=== PATIENT | female | born 1970 | race African-American/Black ===

== ENCOUNTER 2018-02-19 18:33 | Emergency (ER) | payer BC, SELFPAY ==
--- NOTE | 2018-02-19 20:14 | RAD ---
FRONTAL RADIOGRAPH CHEST 02/19/18 COMPARISON: 04/25/16 HISTORY: Chest pain and left sided numbness. FINDINGS: The lungs are clear. Heart and mediastinal contours are unremarkable. IMPRESSION: No acute findings. POS: [facility]
[2018-02-19 20:38] LABS: ALT (SGPT) 18 U/L (8-55); AST (SGOT) 17 U/L (5-34); Albumin 4.1 g/dL (3.5-5.0); Alkaline Phosphatase 111 U/L (40-150); Anion Gap 13 mmol/L (10-20); BUN (Urea Nitrogen) 13 mg/dL (7.0-18.7); Bilirubin, Total 0.2 mg/dL (0.2-1.2); Calc. Creatinine Clearance 0 mL/min (70-130); Calcium 9.1 mg/dL (7.8-10.44); Carbon Dioxide 24 mmol/L (22-29); Chloride 102 mmol/L (98-107); Estimated GFR-MDRD Greater than 90; Globulin 3.6 g/dL (2.4-3.5); Glucose 161 mg/dL (70-105); Potassium 3.7 mmol/L (3.5-5.1); Protein, Total 7.7 g/dL (6.0-8.3); Sodium 135 mmol/L (136-145)
[2018-02-19 20:43] LABS: CKMB 1.3 ng/mL (0-6.6); Troponin I Less than 0.010 ng/mL (< 0.028)
[2018-02-19 20:51] LABS: #Eosinphils 0.1 thou/uL (0.0-0.7); #Lymphocytes 2.2 thou/uL (1.20-3.40); #Monocytes 0.7 thou/uL (0.11-0.59); #Neutrophils 4.9 thou/uL (1.40-6.50); %Basophils 0.5 % (0.0-1.0); %Eosinophils 1.3 % (0.0-10.0); %Lymphocytes 27.5 % (21.0-51.0); %Monocytes 8.7 % (0.0-10.0); Hemoglobin 10.6 g/dL (12.0-16.0); Mean Corpuscular HGB CONC 32.1 g/dL (32.0-36.0); Mean Corpuscular Hemoglobin 24.7 pg (27.0-31.0); Mean Corpuscular Volume 76.8 fl (81.0-99.0); Mean Platelet Volume 7.8 fL (7.4-10.4); Platelet Count 366 thou/uL (130-400); White Blood Cell (WBC) Count 7.8 thou/uL (4.8-10.8)
[2018-02-20 00:18] LABS: Troponin I Less than 0.010 ng/mL (< 0.028)
== END 2018-02-20 01:43 | disposition home or self-care (01) ==
LOC: ERS 18:33
DX: R07.89 Other chest pain (principal); E11.9 Type 2 diabetes mellitus without complications; I10 Essential (primary) hypertension; Z79.84 Long term (current) use of oral hypoglycemic drugs; Z79.899 Other long term (current) drug therapy
CPT/HCPCS: 36415; 71045; 80053; 82553; 83880; 84484; 85025; 93005

== ENCOUNTER 2018-04-01 22:22 | Emergency (ER) | payer SELFPAY ==
[2018-04-01] MEDS ORDERED: Ketorolac Tromethamine 60 MG/2 ML VIAL ONE (23:09)
--- NOTE | 2018-04-01 23:21 | RAD ---
RIGHT KNEE: 04/01/18 Four views. INDICATIONS: Right knee pain and swelling. Mild degenerative changes of the right knee. There is spurring from the femoral condyles and patella. Medial and lateral joint spaces are maintained. There may be a small joint effusion. There is no chris dence of acute fracture. IMPRESSION: Mild degenerative changes of the right knee. Question small joint effusion. POS: [facility]
[2018-04-01] MEDS ORDERED: Ondansetron ODT 4 MG TAB ONE (23:23)
--- NOTE | 2018-04-02 | ULT ---
RIGHT LOWER EXTREMITY VENOUS DUPLEX EXAM: 04/01/18 HISTORY: Right lower extremity pain and edema. Deep veins of the right lower extremity evaluated with color doppler, spectral analysis and compressi on. These veins show normal compression, augmentation and blood flow. No evidence of DVT. IMPRESSION: No evidence of right lower extremity DVT. POS: [facility]
== END 2018-04-02 00:15 | disposition home or self-care (01) ==
LOC: ERS 22:22
DX: S83.91XA Sprain of unspecified site of right knee, initial encounter (principal); E11.9 Type 2 diabetes mellitus without complications; I10 Essential (primary) hypertension; Z79.899 Other long term (current) drug therapy; Z79.84 Long term (current) use of oral hypoglycemic drugs; X50.1XXA Overexertion from prolonged static or awkward postures, initial encounter
CPT/HCPCS: 96372; J1885; Q0162

== ENCOUNTER 2019-05-15 22:18 | Emergency (ER) | payer SELFPAY ==
[2019-05-15] MEDS ORDERED: Ketorolac Tromethamine 60 MG/2 ML VIAL ONE (22:31)
--- NOTE | 2019-05-15 22:55 | RAD ---
Right shoulder 3 views HISTORY: Right shoulder injury. FINDINGS: Acromioclavicular and glenohumeral alignment are maintained. No acute fracture or dislocati on. IMPRESSION: No acute osseous abnormalities are demonstrated.
== END 2019-05-15 23:20 | disposition home or self-care (01) ==
LOC: ERS 22:18
DX: S46.911A Strain of unspecified muscle, fascia and tendon at shoulder and upper arm level, right arm, initial encounter (principal); I10 Essential (primary) hypertension; E11.9 Type 2 diabetes mellitus without complications; Z79.899 Other long term (current) drug therapy; Z79.84 Long term (current) use of oral hypoglycemic drugs; X58.XXXA Exposure to other specified factors, initial encounter
CPT/HCPCS: 96372; J1885

== ENCOUNTER 2019-10-09 23:42 | Emergency (ER) | payer BC ==
[2019-10-10] MEDS ORDERED: Ketorolac Tromethamine 30 MG/ML VIAL ONE (00:18)
--- NOTE | 2019-10-10 08:13 | RAD ---
EXAM: XR Hip Rt 2-3 View PROVIDED CLINICAL HISTORY: Pain FINDINGS: Evaluation is limited by patient body habitus and portable technique. There is no evidence for fractu re or other acute osseous abnormality. Alignment appears anatomic. Joint spaces appear preserved. IMPRESSION: No evidence for an acute osseous abnormality. If there is persistent clinical concern, conservative m anagement and follow-up imaging advised.
== END 2019-10-10 00:41 | disposition home or self-care (01) ==
LOC: ERS 23:42
DX: M25.551 Pain in right hip (principal); E11.9 Type 2 diabetes mellitus without complications; I10 Essential (primary) hypertension; Z79.84 Long term (current) use of oral hypoglycemic drugs; Z79.899 Other long term (current) drug therapy
CPT/HCPCS: 96372; J1885

== ENCOUNTER 2020-02-29 09:30 | Outpatient (CLI) | payer BC ==
--- NOTE | 2020-02-29 10:03 | RAD ---
EXAM: XR Lumbar Spine Bending Min 4V PROVIDED CLINICAL HISTORY: Intervertebral disc displacement. History of prior back surgery. Patient states low back pain for a w hile. COMPARISON: None FINDINGS: There are 5 nonrib-bearing lumbar-type vertebral bodies. There is limited evaluation of the lower lum bar spine on the oblique images due to underpenetrated technique. The vertebral body heights are within normal limits. Grade 1 anterolisthesis of L4 on L5 is present measuring approximately 12 mm. L oss of intervertebral disc space height is present at the L4-5 and L5-S1 levels. Facet degenerative changes are seen in the lower lumbar spine. There is osseous bridging of the transverse processes of L5 with the iliac bones. Surgical clips overlie the right upper quadrant. Linear calcification overlies the right pelvis which may represent a vascular calcification, but this is asymmetric. IMPRESSION: 1. Degenerative changes lower lumbar spine with grade 1 anterolisthesis of L4 on L5. 2. Osseous bridging of the transverse processes of L5 with the iliac bones bilaterally. 3. Linear calcification incompletely evaluated right lower hemipelvis. This may potentially represent a vascular calcification, but this is asymmetric compared to the contralateral left hemipelvis, and no definitive vascular calcifications are seen in the region of the abdominal aorta. Exact etiolo gy is difficult to determine based on this study.
== END 2020-02-29 09:31 | disposition home or self-care (01) ==
LOC: BICRAD 09:30
PROVIDERS: ATTEND Internal Medicine Rheumatology
DX: M51.26 Other intervertebral disc displacement, lumbar region (principal); M47.816 Spondylosis without myelopathy or radiculopathy, lumbar region; M43.16 Spondylolisthesis, lumbar region; M89.9 Disorder of bone, unspecified
CPT/HCPCS: 72120

== ENCOUNTER 2020-03-24 13:05 | Emergency (ER) | payer BC ==
[~2020-03-24 13:05] MED LIST: Iopamidol-370 76% 500 ML 1 ML ONE
[2020-03-24 13:43] LABS: Hemoglobin 10.5 g/dL (12.0-16.0); Mean Corpuscular HGB CONC 31.4 g/dL (32.0-36.0); Mean Corpuscular Hemoglobin 24.8 pg (27.0-31.0); Mean Corpuscular Volume 79.1 fL (78.0-98.0); Mean Platelet Volume 7.8 fL (7.4-10.4); Platelet Count 430 thou/uL (130-400); RBC Distribution Width 14.6 % (11.5-14.5); Red Blood Cell (RBC) Count 4.23 mill/uL (4.20-5.40); White Blood Cell (WBC) Count 14.4 thou/uL (4.8-10.8)
[2020-03-24] MEDS ORDERED: Fentanyl 100 MCG/2 ML VIAL ONE ×2 (13:50→16:32)
[2020-03-24] MEDS ORDERED: Piperacillin/Tazobactam 4.5 GM VIAL ONE (13:50)
[2020-03-24 14:06] LABS: ALT (SGPT) 12 U/L (8-55); AST (SGOT) 10 U/L (5-34); Albumin 3.8 g/dL (3.5-5.0); Alkaline Phosphatase 90 U/L (40-110); Anion Gap 15 mmol/L (10-20); BUN (Urea Nitrogen) 13 mg/dL (7.0-18.7); Bilirubin, Total 0.3 mg/dL (0.2-1.2); Calc. Creatinine Clearance 0 mL/min (70-130); Calcium 9.6 mg/dL (7.8-10.44); Carbon Dioxide 24 mmol/L (22-29); Chloride 103 mmol/L (98-107); Estimated GFR-MDRD 90; Globulin 4.3 g/dL (2.4-3.5); Glucose 113 mg/dL (70-105); Potassium 3.9 mmol/L (3.5-5.1); Protein, Total 8.1 g/dL (6.0-8.3); Sodium 138 mmol/L (136-145)
[2020-03-24 14:09] LABS: BHCG - Serum Negative (NEGATIVE); Pregs Control Background? CLEAR/WHITE (CLR/WHITE); Pregs Control Bar Appear? YES (CONTROL BAR)
[2020-03-24 14:11] LABS: Band 25 % (5-11); Hypochromia SLIGHT = 6-15 cells (100X) (0-5/hpf); Lymphocytes 13 % (21-51); MDiff Complete? YES; Monocytes 6 % (0-10); Neutrophil 48 % (42-75); Platelet Morphology Comment Appears Increased; Polychromasia SLIGHT = 2-3 cells (100X) (0-2/hpf); Reactive Lymphocytes 8 % (0-10); Target Cells SLIGHT = 2-5 cells (100X) (0-1/hpf); Tear Drops SLIGHT = 2-5 cells (100X) (0-1/hpf)
--- NOTE | 2020-03-24 14:52 | CT ---
CT abdomen and pelvis with IV contrast HISTORY: Perianal abscess. FINDINGS: Mild atelectasis at the right posterior medial lung base. The lobular cystic mass at the pa ncreatic tail containing a small focus of dystrophic calcification is slightly smaller than on the 2016 CTA chest. It now measures 2.2 cm x 2.0 cm x 1.7 cm greatest diameters. Gallbladder surgically absent. No evidence of bowel obstruction or inflammation. Lobular prominence o f the uterus is present with the appearance of fibroid involvement. A smoothly marginated oval area of hyperdensity along the left side of the uterus may represent an enhancing fibroid. No free fluid e vident. Posterior to the anus and just to the right of midline, in the area of prominent subcutaneous strandi ng, an oval fluid collection is 5.6 cm length by 5.0 cm depth by 2.8 cm with. No extension into the pelvic cavity is apparent. IMPRESSION : Right posterior perianal abscess. No extension into the pelvic cavity. Moderate fibroid involvement of the uterus. Slight interval decrease in size of complex pancreatic tail cyst.
[2020-03-24] MEDS ORDERED: Bupivacaine 0.25% 10 ML VIAL ONE (15:40)
[2020-03-24] MEDS ORDERED: Lidocaine 1% w/Epinephrine 1:100K 20 ML VIAL ONE (15:40)
--- NOTE | 2020-03-24 18:43 | OP ---
DATE OF PROCEDURE: 03/24/2020 PREOPERATIVE DIAGNOSIS: Perirectal abscess. POSTOPERATIVE DIAGNOSIS: Perirectal abscess. PROCEDURES PERFORMED: Incision and drainage at bedside for perirectal abscess in the emergency room. ANESTHESIA: 1% Xylocaine with epinephrine 30 mL, mixed with 0.5% Marcaine 30 mL. DESCRIPTION OF PROCEDURE: With the patient at bedside in the emergency room, right perianal area prepared with alcohol. Local anesthetic was infiltrated in the skin and subcutaneous tissue. Incision and drainage of large perirectal abscess with copious purulent material drained. Ellipse of skin excised to facilitate drainage and gauze packing applied. The patient was instructed that begin in the morning she should soak in warm soapy baths, remove the packing, wash it daily with soap and water in the bath or shower. If she has a bowel movement tonight, she can wash it sooner. If the dressing falls out tonight, she can just place a pad and wash it with soap and water. She has clindamycin, she will complete at home. She will follow up in my office in 2 weeks. Job ID: [id number]
--- NOTE | 2020-03-24 22:33 | HP ---
Kingsley Magallanes is a 49-year-old morbidly obese black female, for a week has been having right perianal pain. She is seen in the ER clindamycin. She is seen by Dr. June and she has an appointment to see Dr. Vargas next week. She presents to the emergency room because of worsening pain. She is diabetic on metformin. Evaluation reveals that the bedside right perianal area is indurated, fluctuance, very tender. ASSESSMENT AND PLAN: Perirectal abscess. We would recommend bedside drainage. She agrees. Job ID: [id number]
== END 2020-03-24 16:55 | disposition home or self-care (01) ==
LOC: ERS 13:05
DX: K61.0 Anal abscess (principal); E86.0 Dehydration; I10 Essential (primary) hypertension; R73.03 Prediabetes; Z79.84 Long term (current) use of oral hypoglycemic drugs; Z79.899 Other long term (current) drug therapy
CPT/HCPCS: 46050; 74177; 80053; 83605; 84703; 85025; 87040; 93005; 94760; 96361; 96365; 96374; 96375; J2543; J3010; Q9967; S0020

== ENCOUNTER 2020-05-09 09:23 | Outpatient (CLI) | payer BC ==
[2020-05-09 10:42] LABS: Estimated GFR-MDRD - POC Greater than 90
--- NOTE | 2020-05-09 12:43 | MRI ---
MRI LUMBAR SPINE WITH AND WITHOUT CONTRAST: Date: 05/09/2020 INDICATION: Low back pain, right hip pain. History of remote lumbar surgery in 1989. No comparison. Images are suboptimal due to body habitus. All sequences show grainy imaging and loss of detail. FINDINGS: The lumbar vertebra maintain height and alignment. There is loss of disc space with degenerative disc and end plate changes at L5-S1. The other disc spa wandy are preserved with degenerative disc signal changes seen at all levels. Findings at each disc level are described: T12-L1: Mild disc bulge flattening the thecal sac. Mild facet hypertrophy. No evidence of significan t central canal or foraminal stenosis. L1-2: No significant disc bulge. There is facet hypertrophy; however, no central canal or foraminal stenosis. L2-3: Mild disc bulge flattens the thecal sac. Moderate facet hypertrophy. Mild central canal stenos is. L3-4: Minimal disc bulge. Moderate facet arthrosis and hypertrophy. No significant central canal or foraminal stenosis. L4-5: Broad based disc bulge is prominent. Rather pronounced facet arthrosis and hypertrophy. These changes compress the thecal sac resulting in moderate to severe central canal stenosis. Bilateral for aminal narrowing with pronounced left foraminal stenosis. L5-S1: Degenerative disc and end plate changes as noted above. There is evidence of right laminectom y posteriorly at this level. Broad based disc bulge. Facet hypertrophy. Congenitally smaller thecal s ac is present and there is no significant central canal stenosis. Bilateral foraminal stenosis is not ed due to facet hypertrophy and disc bulge. IMPRESSION: 1. Moderate to severe central canal stenosis at L4-5 with bilateral foraminal stenosis at this level as noted above. 2. Degenerative disc and end plate change at L5-S1 with postoperative laminectomy changes posteriorl y on the right. Foraminal narrowing at this level as described above. POS: [facility]
[2020-05-09] MEDS ORDERED: Magnevist 469MG/ML 20 ML VIAL ONE (14:18)
== END 2020-05-09 09:24 | disposition home or self-care (01) ==
LOC: BICMRI 09:23
PROVIDERS: ATTEND Physical Medicine & Rehabilitation
DX: M54.5 Low back pain (principal); M79.662 Pain in left lower leg; M48.061 Spinal stenosis, lumbar region without neurogenic claudication; M48.07 Spinal stenosis, lumbosacral region; M51.37 Other intervertebral disc degeneration, lumbosacral region; M96.1 Postlaminectomy syndrome, not elsewhere classified
CPT/HCPCS: 72158; 82565; A9579

== ENCOUNTER 2020-07-13 07:33 | Outpatient (CLI) | payer BC, OTHER ==
[2020-07-13 16:37] LABS: Hemoglobin 11.4 g/dL (12.0-16.0); Mean Corpuscular HGB CONC 32.5 g/dL (32.0-36.0); Mean Corpuscular Hemoglobin 25.7 pg (27.0-31.0); Mean Corpuscular Volume 79.3 fL (78.0-98.0); Mean Platelet Volume 9.9 fL (7.4-10.4); Platelet Count 278 thou/uL (130-400); RBC Distribution Width 20.2 % (11.5-14.5); Red Blood Cell (RBC) Count 4.42 mill/uL (4.20-5.40); White Blood Cell (WBC) Count 6.1 thou/uL (4.8-10.8)
[2020-07-14 12:02] LABS: SARS-CoV-2 MS2 Positive; SARS-CoV-2 N Gene Negative; SARS-CoV-2 S Gene Negative; SARS-CoV-2 by NAA Not Detected (NotDetected); SARS-CoV-2 orf1ab Negative
== END 2020-07-13 07:34 | disposition home or self-care (01) ==
LOC: LABBT 07:33
PROVIDERS: ATTEND Obstetrics & Gynecology
DX: Z01.812 Encounter for preprocedural laboratory examination (principal); Z20.828 Contact with and (suspected) exposure to other viral communicable diseases; D25.9 Leiomyoma of uterus, unspecified; N92.0 Excessive and frequent menstruation with regular cycle; D64.9 Anemia, unspecified
CPT/HCPCS: 85027; 86850; 86900; 86901; 87635; U0003

== ENCOUNTER 2020-07-17 05:47 | Day surgery (SDC) | payer BC ==
[2020-07-14 13:29] VITALS: BMI 52.2
--- NOTE | 2020-07-16 14:50 | HP ---
HISTORY OF PRESENT ILLNESS: Ms. Magallanes is a 49-year-old female, G2, P2, with symptomatic large uterine fibroids. She has been having issues, heavy menorrhagia/bleeding with noted severe anemia in the past secondary to the heavy flow. She was seen initially in the summer of 2019 and had an ultrasound of the uterus on 05/24/2020 showing the uterus to be enlarged measuring 14.9 x 11.5 x 7 cm with a 7.5 mm endometrial thickness and a large uterine fibroid 9 cm noted. No adnexal masses were seen. PAST MEDICAL HISTORY: Chronic medical conditions: 1. Chronic hypertension. 2. Morbid obesity. 3. Type 2 diabetes. 4. Chronic back issues with disk herniation. SOCIAL HISTORY: She is a nonsmoker. PAST SURGICAL HISTORY: Laminectomy in the past and an orthopedic shoulder surgery. CURRENT MEDICATIONS: 1. Alprazolam 0.25 mg tablet b.i.d. p.r.n. anxiety. 2. Clonidine 0.1 mg tablet one p.o. daily at bedtime. 3. Cyclobenzaprine 10 mg tablet one t.i.d. p.r.n. back spasms. 4. Vitamin D. 5. Diazepam 5 mg tablet as needed for anxiety. 6. She is on iron supplement 325 mg of ferrous sulfate b.i.d. 7. Gabapentin 300 mg capsule daily. 8. Metformin 500 mg tablet daily. 9. Naproxen 500 mg tablet one p.o. b.i.d. for pain. 10. Olmesartan 40 mg. 11. Amlodipine 5 mg tablet. 12. Hydrochlorothiazide 25 mg for hypertension daily. 13. Pantoprazole 40 mg tablet daily. 14. Simvastatin 10 mg tablet daily. 15. Tramadol 50 mg q.6 hours p.r.n. back pain. FAMILY HISTORY: Noncontributory. OB HISTORY: Two spontaneous vaginal deliveries. PHYSICAL EXAMINATION: VITAL SIGNS: The patient's height is 5 feet and 4 inches, weight 310 with BMI 53. Blood pressure 140/90, pulse is 90 and regular, and respiratory rate 18. HEENT: Within normal limits. CHEST: Clear to auscultation. HEART: Regular rate and rhythm. S1 and S2 heart sounds. No murmurs, rubs, or gallops. ABDOMEN: Soft, nontender, obese. PELVIC: Vulva and vagina had no lesions. Cervix had no lesions. The patient is up to date with a normal Pap smear within the past 3 years. Ultrasound exam per HPI. Uterus was approximately 16-week size and nontender. ASSESSMENT: This is a 49-year-old female with, 1. Symptomatic uterine fibroids. 2. Morbid obesity. PLAN: To proceed with robotic TLH with salpingectomy with ExCITE removal of the uterine masses. Possibility of open SHILO-BSO if unable to successfully remove the uterus via laparoscopic technique. Risks and benefits of procedure explained in detail and she is set for surgery on 07/17. Job ID: [id number]
[2020-07-17] MEDS ORDERED: CeleCOXIB 100 MG CAP ONE (06:34)
[2020-07-17] MEDS ORDERED: Famotidine/PF 20 mg/2ml Vial ONE (06:34)
[2020-07-17] MEDS ORDERED: Bupivacaine PF 0.5% 30 ML VIAL ONE (06:44)
[2020-07-17] MEDS ORDERED: Lidocaine 1% w/Epinephrine 1:100K 20 ML VIAL ONE (06:44)
[2020-07-17] MEDS ORDERED: Methylene Blue 50 MG/10 ML AMPUL ONE (06:45)
[2020-07-17] MEDS ORDERED: SUGAMMADEX SODIUM 500 MG/5 ML VIAL ONE (06:59)
[2020-07-17] MEDS ORDERED: Fentanyl 100 MCG/2 ML VIAL ONE ×2 (06:59→11:51)
[2020-07-17 07:16] LABS: Anion Gap 13 mmol/L (10-20); BUN (Urea Nitrogen) 19 mg/dL (7.0-18.7); Calc. Creatinine Clearance 176 mL/min (70-130); Calcium 9.5 mg/dL (7.8-10.44); Carbon Dioxide 23 mmol/L (22-29); Chloride 104 mmol/L (98-107); Estimated GFR-MDRD 86; Glucose 114 mg/dL (70-105); Potassium 4.3 mmol/L (3.5-5.1); Sodium 136 mmol/L (136-145)
[2020-07-17] MEDS ORDERED: Zolpidem Tartrate 5 MG TAB PO PRN (07:42)
[2020-07-17] MEDS ORDERED: Morphine 4 MG/ML VIAL SLOW IVP PRN (07:42)
[2020-07-17] MEDS ORDERED: Bisacodyl 10 MG SUPP PR PRN (07:42)
[2020-07-17] MEDS ORDERED: Ondansetron PF 4 MG/2 ML Vial IVP PRN (07:42)
[2020-07-17] MEDS ORDERED: traMADol HCl 50 MG TAB PO PRN ×2 (07:42)
[2020-07-17] MEDS ORDERED: Promethazine HCl 25 MG/ML VIAL IM PRN ×2 (07:42→10:14)
[2020-07-17] MEDS ORDERED: diphenhydrAMINE 25 MG CAP PO PRN (07:42)
[2020-07-17] MEDS ORDERED: Acetaminophen 325 MG TAB PO PRN (07:42)
[2020-07-17] MEDS ORDERED: Simethicone Chewable 80 MG TAB PO PRN (07:42)
[2020-07-17] MEDS ORDERED: Cyclobenzaprine 10 MG TAB PO PRN (07:43)
[2020-07-17] MEDS ORDERED: Promethazine HCl 25 MG/ML VIAL SLOW IVP PRN (10:14)
[2020-07-17] MEDS ORDERED: Meperidine HCl/PF 25 MG/ML VIAL SLOW IVP PRN (10:14)
[2020-07-17] MEDS ORDERED: Ketorolac Tromethamine 30 MG/ML VIAL IVP PRN (10:14)
[2020-07-17] MEDS ORDERED: Ondansetron HCl/PF 4 MG/2 ML Vial IVP PRN (10:14)
[2020-07-17] MEDS ORDERED: Labetalol HCl 100 MG/20 ML VIAL SLOW IVP PRN (11:02)
[2020-07-17] MEDS ORDERED: Dextrose 50% Abboject 50 ML SYRINGE SLOW IVP PRN (11:03)
[2020-07-17] MEDS ORDERED: Dextrose 5% in Water 1,000 ML IV PRN (11:03)
[2020-07-17] MEDS ORDERED: Rocuronium Bromide 10 MG/ML (10ML VIAL) ONE (11:32)
[2020-07-17] MEDS ORDERED: PROPOFOL 200 MG/20 ML VIAL ONE (11:32)
[2020-07-17] MEDS ORDERED: EPHEDRINE 25 MG/5 ML SYRINGE ONE (11:32)
[2020-07-17] MEDS ORDERED: Ondansetron PF 4 MG/2 ML Vial ONE (11:32)
[2020-07-17] MEDS ORDERED: Dexamethasone 20 MG/5 ML VIAL ONE (11:32)
[2020-07-17] MEDS ORDERED: Lidocaine 1% PF 5 ML VIAL ONE (11:32)
[2020-07-17] MEDS ORDERED: PHENYLEPHRINE-NS 100 MCG/ML 10 ML SYRINGE ONE (11:32)
[2020-07-17] MEDS ORDERED: Metoclopramide HCl 10 MG/2 ML VIAL ONE (11:32)
[2020-07-17] MEDS: Sodium Chloride 0.9% 1,000 ML IV SCH ×2 (13:00→21:51)
[2020-07-17] MEDS: Ferrous Sulfate 325 MG TAB PO SCH (13:01)
[2020-07-17] MEDS: Amlodipine 5 MG TAB PO SCH (13:01)
[2020-07-17] MEDS: Docusate 100 MG CAP PO SCH ×3 (13:01→21:50)
[2020-07-17] MEDS: metFORMIN 500 MG TAB PO SCH ×2 (13:01→17:39)
[2020-07-17] MEDS: Gabapentin 300 MG CAP PO SCH ×3 (13:01→21:50)
[2020-07-17] MEDS: Furosemide 40 MG TAB PO SCH ×2 (13:01→13:19)
[2020-07-17] MEDS: Pregabalin 75 MG CAP PO SCH ×2 (13:02→21:50)
[2020-07-17] MEDS: Ketorolac Tromethamine 30 MG/ML VIAL IVP SCH ×2 (13:19→18:52)
[2020-07-17] MEDS ORDERED: cloNIDine 0.1 MG TAB PO SCH (21:00)
[2020-07-17] MEDS ORDERED: Atorvastatin Calcium 20 MG TAB PO SCH (21:00)
[2020-07-18] MEDS: Ketorolac Tromethamine 30 MG/ML VIAL IVP SCH (00:19)
[2020-07-18 05:31] LABS: Hemoglobin 9.5 g/dL (12.0-16.0); Mean Corpuscular HGB CONC 31.7 g/dL (32.0-36.0); Mean Corpuscular Hemoglobin 25.4 pg (27.0-31.0); Mean Corpuscular Volume 80.1 fL (78.0-98.0); Mean Platelet Volume 9.3 fL (7.4-10.4); Platelet Count 264 thou/uL (130-400); RBC Distribution Width 19.9 % (11.5-14.5); Red Blood Cell (RBC) Count 3.74 mill/uL (4.20-5.40); White Blood Cell (WBC) Count 8.3 thou/uL (4.8-10.8)
[2020-07-18 05:50] LABS: Anion Gap 10 mmol/L (10-20); BUN (Urea Nitrogen) 16 mg/dL (7.0-18.7); Calc. Creatinine Clearance 165 mL/min (70-130); Calcium 8.1 mg/dL (7.8-10.44); Carbon Dioxide 25 mmol/L (22-29); Chloride 105 mmol/L (98-107); Estimated GFR-MDRD 80; Glucose 130 mg/dL (70-105); Potassium 3.9 mmol/L (3.5-5.1); Sodium 136 mmol/L (136-145)
[2020-07-18] MEDS ORDERED: Ibuprofen 800 MG TAB PO SCH (06:00)
[2020-07-18 08:12] VITALS: BP 109/65; TEMP 98.4
--- NOTE | 2020-07-18 08:16 | PDOC.EVN ---
Event Note - Event Note Event Note: Post op day 1.. Robotic tlh/bs with excite for large uterine fibroids. Vitals stable. HCT 29.5%. Ambulating and voiding. Good pain control.. ABD: soft/non distended. trochar sites C/D/I.. EXT:-non tender. A/PDoing well. D/c home. F/u in 2 and 6 weeks.
[2020-07-18] MEDS: Amlodipine 5 MG TAB PO SCH (09:03)
[2020-07-18] MEDS: Gabapentin 300 MG CAP PO SCH (09:03)
[2020-07-18] MEDS: Furosemide 40 MG TAB PO SCH (09:03)
[2020-07-18] MEDS: Docusate 100 MG CAP PO SCH (09:03)
[2020-07-18] MEDS: Pregabalin 75 MG CAP PO SCH (09:03)
[2020-07-18] MEDS: Ferrous Sulfate 325 MG TAB PO SCH (09:04)
[2020-07-18] MEDS: metFORMIN 500 MG TAB PO SCH (09:04)
--- NOTE | 2020-07-18 15:35 | OP ---
DATE OF PROCEDURE: 07/17/2020 PREOPERATIVE DIAGNOSES: 49-year-old female with symptomatic 16-week uterine fibroids, menorrhagia, pelvic pain. POSTOPERATIVE DIAGNOSES: 49-year-old female with symptomatic 16-week uterine fibroids, menorrhagia, pelvic pain. PROCEDURES PERFORMED: Robotic total laparoscopic hysterectomy, bilateral salpingectomy with ExCITE procedure for removal of the specimen. MANAGER ENVIRONMENTAL SERVICES SURGEON: Mackenzie Solis PA-C ANESTHESIA: General endotracheal. ESTIMATED BLOOD LOSS: 50 mL. COMPLICATIONS: None. COUNTS: Correct x2. ANTIBIOTICS: 2 g Ancef on-call to OR with ERAS protocol. PATHOLOGY: Bilateral fallopian tubes, uterus, cervix, and fibroids. FINDINGS: 1. Very large uterine fibroids noted. 2. Normal bilateral fallopian tubes and ovaries. 3. Clear urine present in Jasso catheter postprocedure with bilateral ureteral peristalsis visualized on the pelvic sidewalls postprocedure. DISPOSITION: Recovery room, stable. DESCRIPTION OF PROCEDURE: The patient previously received informed consent in regard to surgery. She was taken back to the operating room, where she received a general endotracheal anesthetic agent without complications. She was placed in dorsal lithotomy position with use of Hunter stirrups, prepped and draped in usual sterile fashion. Jasso catheter was placed at this time. A side-arm speculum was placed in the vagina. Anterior lip of the cervix was grasped with single-tooth tenaculum. The uterus sounded to 14 cm. A size 12 cm NALLELY uterine manipulator with a 4 cm cup was placed in usual fashion. Tenaculum and speculum were removed. Attention was then turned to the abdomen, where perspective trocar sites were infiltrated with 0.5% Marcaine with epinephrine. Approximately 3 cm midline vertical incision was made supraumbilical in the skin. This was carried down to the fascia. The subcutaneous tissue was dissected away with [place] retractors. A stay suture of 0 Vicryl was placed in the fascia which was grasped by Sangeeta clamps. This enabled us to better place the Veress needle into the abdominal cavity. A Veress needle was inserted, it was noted the patient pressure of less than 5 mm and the abdomen then was insufflated with the patient's pressure of 15, approximately 5 L of carbon dioxide gas was inflated. The Veress needle was removed. The patient had significant obesity with subcutaneous thickness in this area, so I used a size 8 mm trocar to create a tunnel into the fascia which guided me easier to place a 12 mm trocar and this was then completed. We then inspected the abdomen with the laparoscope and additional trocars were placed in bilateral lower quadrant, actually more in the mid quadrant line of the umbilicus with 8 mm trocars and then in the right upper quadrant 11 mm senior assistant manager port. The patient was placed in Trendelenburg position. We then used the [employer] retractors which held the subcu tissue out of the way and then I incised over the 12 mm trocar plastic guard and this enabled me to extend the fascial incision approximately 3 cm, allowing me to place a small Mir O retractor and then the GelPOINT system. The 12 mm trocar sleeve was then placed through the GelPOINT and the laparoscope was placed. We then docked the robot in usual fashion. I then broke scrub and proceeded to carry out the surgery from the operative port while my senior assistant manager remained at the bedside. We lifted the uterus from the pelvis. The left fallopian tube was grasped by my senior assistant manager and I coagulated the mesosalpinx and removed the left fallopian tube with bipolar fenestrated cautery and monopolar scissors, this was removed through the right upper quadrant senior assistant manager port. Then, I coagulated the left uterine ovarian ligament with bipolar fenestrated cautery and transected. Serial coagulation of the broad ligament hugging close to uterine specimen was carried out until the left round ligament was reached. It was coagulated and transected. This allowed for me to enter into the vesicouterine peritoneum fold. We used both sharp and blunt dissection, dissecting the bladder safely past the cervical vaginal margin which was palpable by the cervical cup beneath. I then meticulously skeletonized uterine vessels on the left side and these were coagulated in the internal cervical os region. This was carried out in similar fashion on the patient's right side. Once this had been completed, we then carried out the anterior colpotomy starting from 12 to 9 o'clock and then due to the large size of the uterus, manipulated the uterine corpus body to the patient's right side to enable me to complete some of the posterior colpotomy to about 7 o'clock circumferentially over the cervical cup. Meticulous cautery intermittently was carried out to control the bleeding and provide hemostasis. My senior assistant manager was then able to move large uterine body to the patient's left side and then we completed the anterior colpotomy from 12 to 3 and then back to the 3 to 6 o'clock detaching the specimen. The uterus and cervix were detached from the NALLELY manipulator and placed in the . The vaginal vault was filled with the balloon for continued pneumoperitoneum. We irrigated the site. Hemostasis was confirmed. A needle class b truck driver had been brought in and then a Stratafix suture was brought down into the pelvis by my senior assistant manager. I closed the vaginal cuff in full-thickness closure, starting from the right angle through the midline to the left angle and back towards the midline and the excess suture string was then removed and the needle was removed in the right upper quadrant senior assistant manager port. Hemostasis of the vaginal cuff line was confirmed. All the pelvic sidewall pedicles was hemostatic. Clear urine was draining from the Jasso catheter. We did see bilateral ureteral peristalsis noted. We initially placed a folded accordion tied suture Endobag in the right upper quadrant. This was brought down into the pelvis by my senior assistant manager. We then cut the those sutures and then we manipulated the uterus with its content and the cervix into the large Endobag. A pretied loop with string was brought through the cinch and the bag closed. Then, my senior assistant manager went through the GelPOINT and grabbed the end of the string and brought that up through the GelPOINT with the uterus in situ in the bag. We then undocked the robot and then the large Aces bag with the uterus was then brought up through the Mir O retractor site. It was secured inside the bag. I then took the Mir O retractor out and put that with the inside the Aces bag. This allowed for a guard while we were doing the morcellation procedure. Once this was accomplished, I grasped the tissue specimen and in a C-cutting technique meticulously removed the uterus and contents. Once the uterus and the fibroids had been removed in total, we brought out the Aces bag and it was still watertight. The Mir O retractor was removed. I grasped the edges of the fascial defect with Sangeeta clamps and [employer] retractors and then we closed that in running locking fashion with 0 Vicryl suture securing the supraumbilical fascial defect. The remainder of the trocar sites were closed with 4-0 Monocryl subcuticular and Dermabond. The vaginal vault was inspected and was noted to be hemostatic with the sponge stick. The patient was awakened from anesthesia and transferred to recovery in stable condition. Job ID: [id number]
--- NOTE | 2020-07-18 16:07 | EKG ---
Test Reason : PREOP Blood Pressure : / mmHG Vent. Rate : 097 BPM Atrial Rate : 097 BPM P-R Int : 160 ms QRS Dur : 082 ms QT Int : 354 ms P-R-T Axes : 052 029 023 degrees QTc Int : 449 ms Normal sinus rhythm Normal ECG No previous ECGs available Confirmed by MEGHANN LEMUS ([id number]) on 07/18/2020 4:07:10 PM Referred By: LAURA Confirmed By:MEGHANN LEMUS
--- NOTE | 2020-07-19 02:04 | DIS ---
DATE OF ADMISSION: 07/17/2020 DATE OF DISCHARGE: 07/18/2020 DIAGNOSES: 1. Large symptomatic uterine fibroids. 2. Menorrhagia. 3. Pelvic pain. 4. Morbid obesity. 5. Comorbid history, chronic hypertension and type 2 diabetes, hyperlipidemia. PROCEDURE PERFORMED: Robotic TLH with bilateral salpingectomy with ExCITE procedure. SUMMARY OF HOSPITAL COURSE: Ms. Magallanes is a 49-year-old female, who has a very large 16 week uterine fibroids. She underwent a robotic TLH-BS with ExCITE procedure on 07/17. Postoperatively, the patient has done well. Vital signs remained stable. She is tolerating diet, ambulating and voiding without difficulty. Pain control is good with oral medications and glycemic control has been adequate in the 120s to 130s. She will be discharged home with prescription for tramadol 50 mg q.6 hours p.r.n. pain, [id number] ibuprofen as directed. She has a followup in 2 and 6 weeks. Pathology is pending at time of this dictation. She is to continue her maintenance medications for her hypertension and diabetes. Job ID: [id number]
== END 2020-07-18 09:54 | disposition home or self-care (01) ==
LOC: SDC 05:47 → 3SE 12:25 → SDC 07-18 09:54
PROVIDERS: ATTEND Obstetrics & Gynecology
PROC: 0UT94ZZ Resection of Uterus, Percutaneous Endoscopic Approach (ICD-10-PCS; principal; 2020-07-17)
PROC: 0UT74ZZ Resection of Bilateral Fallopian Tubes, Percutaneous Endoscopic Approach (ICD-10-PCS; principal; 2020-07-17)
DX: D25.9 Leiomyoma of uterus, unspecified (principal); N88.8 Other specified noninflammatory disorders of cervix uteri; D64.9 Anemia, unspecified; E66.01 Morbid (severe) obesity due to excess calories; I10 Essential (primary) hypertension; E11.9 Type 2 diabetes mellitus without complications; E78.5 Hyperlipidemia, unspecified; Z68.43 Body mass index [BMI] 50.0-59.9, adult; Z79.84 Long term (current) use of oral hypoglycemic drugs; Z79.899 Other long term (current) drug therapy; Z88.5 Allergy status to narcotic agent
CPT/HCPCS: 36415; 36416; 80048; 85027; 88307; 93005; 93010; J0690; J1100; J1885; J2405; J2704; J2765; J3010; Q9968; S0020; S0028

== ENCOUNTER 2020-10-29 13:27 | Emergency (ER) | payer BC ==
[2020-10-29 14:26] LABS: #Eosinphils 0.1 thou/uL (0.0-0.7); #Lymphocytes 1.4 thou/uL (1.20-3.40); #Monocytes 1.1 thou/uL (0.11-0.59); %Basophils 0.1 % (0.0-1.0); %Eosinophils 0.6 % (0.0-10.0); %Lymphocytes 9.9 % (21.0-51.0); %Monocytes 7.8 % (0.0-10.0); %Neutrophils 81.6 % (42.0-75.0); Hemoglobin 10.4 g/dL (12.0-16.0); Mean Corpuscular HGB CONC 32.6 g/dL (32.0-36.0); Mean Corpuscular Hemoglobin 26.2 pg (27.0-31.0); Mean Corpuscular Volume 80.5 fL (78.0-98.0); Mean Platelet Volume 7.9 fL (7.4-10.4); Platelet Count 331 thou/uL (130-400); RBC Distribution Width 14.6 % (11.5-14.5); Red Blood Cell (RBC) Count 3.96 mill/uL (4.20-5.40); White Blood Cell (WBC) Count 13.5 thou/uL (4.8-10.8)
[2020-10-29] MEDS ORDERED: Morphine 4 MG/ML VIAL ONE (14:41)
[2020-10-29] MEDS ORDERED: Ondansetron PF 4 MG/2 ML Vial ONE (14:41)
--- NOTE | 2020-10-29 14:45 | CT ---
CT ABDOMEN WITH CONTRAST CT PELVIS WITH CONTRAST: DATE: 10/29/2020 HISTORY: 50-year-old female with history of pilonidal cyst is experiencing recurrent symptoms COMPARISON: 03/24/2020 TECHNIQUE: IV injection of iodinated contrast media: administered. Oral contrast media:Not administered FINDINGS: Again noted is the complex mass at midline, abutting the posterior surface of the anus and anorectal junction anteriorly, and abutting the intergluteal cleft posteriorly. It consists of central low attenuation cystic components consistent with abscess, surrounded by thick enhancing phlegmonous tiss ue. There is surrounding fat stranding. It is of similar size as before. Cholecystectomy clips in gallbladder fossa. No major pathology of kidneys, abdominal aorta, adrenals, pancreas, liver, or spleen. Normal appendix. Partially decompressed urinary bladder. There are new bilateral pedicle screws at L4, L5, and S1, and a new metallic interbody cage at the L4 -5 disc space. Lung bases are grossly clear. No small bowel dilation or colonic diverticulitis. No abscess within the pelvic cavity. Again noted is the severe sclerosis of the left iliac bone broadly abutting the left SI joint, where there is vacuum joint phenomenon. There is milder sclerosis at the adjacent left iliac wing. IMPRESSION: 1) recurrence of the posterior perianal abscess: Evidence for recurrence of pilonidal cyst. 2) interval status post posterior lumbar interbody fusion. 3) asymmetrically severe left-sided sacroiliitis.
[2020-10-29 14:46] LABS: ALT (SGPT) 13 U/L (8-55); AST (SGOT) 16 U/L (5-34); Albumin 3.5 g/dL (3.5-5.0); Alkaline Phosphatase 94 U/L (40-110); Anion Gap 16 mmol/L (10-20); BUN (Urea Nitrogen) 9 mg/dL (7.0-18.7); Bilirubin, Total 0.4 mg/dL (0.2-1.2); Calc. Creatinine Clearance 0 mL/min (70-130); Calcium 8.7 mg/dL (7.8-10.44); Carbon Dioxide 23 mmol/L (22-29); Chloride 102 mmol/L (98-107); Globulin 4.1 g/dL (2.4-3.5); Glucose 151 mg/dL (70-105); Potassium 4.1 mmol/L (3.5-5.1); Protein, Total 7.6 g/dL (6.0-8.3); Sodium 137 mmol/L (136-145)
[2020-10-29] MEDS ORDERED: Lidocaine 1% (PF) 30 ML VIAL ONE (15:56)
[2020-10-29] MEDS ORDERED: Fentanyl 100 MCG/2 ML VIAL ONE (15:56)
[2020-10-29] MEDS ORDERED: Piperacillin/Tazobactam 4.5 GM VIAL ONE (15:56)
== END 2020-10-29 17:53 | disposition home or self-care (01) ==
LOC: ERS 13:27
DX: K61.0 Anal abscess (principal); Z79.899 Other long term (current) drug therapy; Z79.84 Long term (current) use of oral hypoglycemic drugs; I10 Essential (primary) hypertension; R73.03 Prediabetes
CPT/HCPCS: 10060; 36415; 74177; 80053; 83605; 85025; 87040; 96365; 96375; J2001; J2270; J2405; J2543; J3010; Q9967

== ENCOUNTER 2020-11-03 07:21 | Outpatient (CLI) | payer BC ==
[2020-11-03 12:02] LABS: #Basophils 0.1 10x3/uL (0.0-0.2); #Eosinphils 0.5 10x3/uL (0.0-0.5); #Monocytes 0.9 10x3/uL (0.0-1.1); #Neutrophils 3.8 10x3/uL (1.5-8.4); %Basophils 0.8 % (0.0-2.0); %Eosinophils 6.2 % (0.0-6.0); %Lymphocytes 28.6 % (18.0-47.0); %Monocytes 11.9 % (0.0-10.0); %Neutrophils 51.9 % (40.0-75.0); Hemoglobin 9.3 g/dL (12.0-16.0); Mean Corpuscular HGB CONC 30.5 G/DL (32.0-36.0); Mean Corpuscular Hemoglobin 24.5 PG (27.0-33.0); Mean Corpuscular Volume 80.3 fl (80.0-100.0); Mean Platelet Volume 10.6 fl (7.4-10.4); Platelet Count 410 10x3/uL (130-400); RBC Distribution Width 16.4 % (11.5-14.5); White Blood Cell (WBC) Count 7.2 10x3/uL (4.5-11.0)
[2020-11-03 12:22] LABS: Anion Gap 15 mmol/L (10-20); BUN (Urea Nitrogen) 16 mg/dL (7.0-18.7); Calc. Creatinine Clearance 0 mL/min (70-130); Calcium 8.6 mg/dL (7.8-10.44); Carbon Dioxide 25 mmol/L (22-29); Chloride 105 mmol/L (98-107); Glucose 103 mg/dL (70-105); Potassium 4.1 mmol/L (3.5-5.1); Sodium 141 mmol/L (136-145)
[2020-11-04 16:03] LABS: SARS-CoV-2 MS2 Positive; SARS-CoV-2 N Gene Negative; SARS-CoV-2 S Gene Negative; SARS-CoV-2 by NAA Not Detected (NotDetected); SARS-CoV-2 orf1ab Negative
== END 2020-11-03 07:22 | disposition home or self-care (01) ==
LOC: LABBT 07:21
PROVIDERS: ATTEND Specialist
DX: Z01.812 Encounter for preprocedural laboratory examination (principal); K61.1 Rectal abscess; E66.01 Morbid (severe) obesity due to excess calories; Z68.41 Body mass index [BMI] 40.0-44.9, adult; Z20.822 Contact with and (suspected) exposure to COVID-19
CPT/HCPCS: 80048; 85025; 87635; U0003; U0005

== ENCOUNTER 2020-11-08 05:37 | Day surgery (SDC) | payer BC ==
[2020-11-06 09:51] VITALS: BMI 53.8
[2020-11-08] MEDS ORDERED: cefOXitin Sodium/Dextrose 2 GM/50 ML BAG ONE (06:31)
[2020-11-08] MEDS ORDERED: Ketorolac Tromethamine 30 MG/ML VIAL ONE (06:31)
[2020-11-08] MEDS ORDERED: Acetaminophen 500 MG TAB ONE (06:31)
[2020-11-08] MEDS ORDERED: metroNIDAZOLE 500 MG/100 ML BAG ONE (06:31)
[2020-11-08] MEDS ORDERED: Fentanyl 100 MCG/2 ML VIAL ONE (07:08)
[2020-11-08] MEDS ORDERED: Lidocaine 2% Jelly 5 ML TUBE ONE (07:49)
[2020-11-08] MEDS ORDERED: Bupivacaine PF 0.5% 30 ML VIAL ONE (07:49)
[2020-11-08] MEDS ORDERED: Lidocaine 2% w/Epinephrine 1:200K 20 ML VIAL ONE (07:49)
--- NOTE | 2020-11-08 09:07 | OP ---
DATE OF PROCEDURE: 11/08/2020 PREOPERATIVE DIAGNOSIS: Recurrent perirectal abscess, suspect fistula in ano. POSTOPERATIVE DIAGNOSIS: Fistula in ano. PROCEDURE: Exam under anesthesia, fistulotomy, right posterolateral, Gel-Foam gauze, 4x4s placed. ANESTHESIA: General, local 0.5% Marcaine 30 mL mixed with 1% Xylocaine with epinephrine 20 mL. DESCRIPTION OF PROCEDURE: The patient was taken to the operating room, where under general anesthesia in the dorsal lithotomy position, perianal area prepared with Betadine and draped in routine fashion. Exam under anesthesia performed, placing the through the opening right posterior lateral perianal directing it towards the lower rectum, where defect was found and fistulotomy performed using cutting and coagulation cautery. Hemostasis was gained. Granulation bed debrided sharply. Hemostasis gained with cautery. Local anesthetic mixture was infiltrated into the skin and subcutaneous tissue for postop pain control. Gelfoam with Xylocaine jelly with epinephrine dressing applied and gauze dressing applied. The patient tolerated the procedure well. Job ID: [id number]
[2020-11-08] MEDS ORDERED: hydrALAZINE 20 MG/ML VIAL ONE (09:37)
[2020-11-08] MEDS ORDERED: Dexamethasone 20 MG/5 ML VIAL ONE (10:16)
[2020-11-08] MEDS ORDERED: Lidocaine 1% PF 5 ML VIAL ONE (10:16)
[2020-11-08] MEDS ORDERED: Ondansetron PF 4 MG/2 ML Vial ONE (10:16)
[2020-11-08] MEDS ORDERED: Rocuronium Bromide 10 MG/ML (10ML VIAL) ONE (10:16)
[2020-11-08] MEDS ORDERED: PROPOFOL 200 MG/20 ML VIAL ONE (10:16)
[2020-11-08] MEDS ORDERED: Glycopyrrolate 0.2 MG/ML 5 ML SYRINGE ONE (10:16)
[2020-11-08] MEDS ORDERED: HYDROcodone/Acetaminophen 5/325 mg Tablet ONE (10:53)
== END 2020-11-08 11:45 | disposition home or self-care (01) ==
LOC: SDC 05:37
PROVIDERS: ATTEND Specialist
PROC: 0DBQXZZ Excision of Anus, External Approach (ICD-10-PCS; principal; 2020-11-08)
DX: K61.1 Rectal abscess (principal); I10 Essential (primary) hypertension; E66.01 Morbid (severe) obesity due to excess calories; Z68.43 Body mass index [BMI] 50.0-59.9, adult; Z79.84 Long term (current) use of oral hypoglycemic drugs; Z79.899 Other long term (current) drug therapy; Z88.5 Allergy status to narcotic agent
CPT/HCPCS: J0360; J0694; J1100; J1885; J2405; J2704; J3010; S0020

== ENCOUNTER 2022-04-25 23:03 | Emergency (ER) | payer OTHER, SELFPAY ==
[2022-04-25] MEDS ORDERED: Adenosine 6 MG/2 ML VIAL ONE (23:20)
[2022-04-25 23:30] LABS: #Basophils 0.1 thou/uL (0.0-0.2); #Eosinphils 0.1 thou/uL (0.0-0.7); #Lymphocytes 2.6 thou/uL (1.20-3.40); #Monocytes 0.6 thou/uL (0.11-0.59); #Neutrophils 4.7 thou/uL (1.40-6.50); %Basophils 0.8 % (0.0-1.0); %Eosinophils 1.8 % (0.0-10.0); %Monocytes 7.8 % (0.0-10.0); %Neutrophils 57.7 % (42.0-75.0); Hemoglobin 14.2 g/dL (12.0-16.0); Mean Corpuscular HGB CONC 33.1 g/dL (32.0-36.0); Mean Corpuscular Hemoglobin 28.3 pg (27.0-31.0); Mean Corpuscular Volume 85.5 fL (78.0-98.0); Mean Platelet Volume 7.9 fL (7.4-10.4); Platelet Count 320 thou/uL (130-400); RBC Distribution Width 13.1 % (11.5-14.5); White Blood Cell (WBC) Count 8.2 thou/uL (4.8-10.8)
[2022-04-26 00:02] LABS: ALT (SGPT) 21 U/L (8-55); AST (SGOT) 12 U/L (5-34); Albumin 3.9 g/dL (3.5-5.0); Alkaline Phosphatase 228 U/L (40-110); Anion Gap 15 mmol/L (10-20); BUN (Urea Nitrogen) 16 mg/dL (7.0-18.7); Bilirubin, Total 0.3 mg/dL (0.2-1.2); Calc. Creatinine Clearance 0 mL/min (70-130); Calcium 9.7 mg/dL (7.8-10.44); Carbon Dioxide 26 mmol/L (22-29); Chloride 101 mmol/L (98-107); Estimated GFR 66; Globulin 3.8 g/dL (2.4-3.5); Glucose 384 mg/dL (70-105); Protein, Total 7.7 g/dL (6.0-8.3); Sodium 138 mmol/L (136-145)
[2022-04-26] MEDS ORDERED: Metoprolol Tartrate 25 MG TAB ONE (01:14)
== END 2022-04-26 02:40 | disposition home or self-care (01) ==
LOC: ERS 23:03
DX: I47.1 Supraventricular tachycardia (principal); E11.65 Type 2 diabetes mellitus with hyperglycemia; I10 Essential (primary) hypertension; K21.9 Gastro-esophageal reflux disease without esophagitis
CPT/HCPCS: 36415; 36416; 71045; 80053; 84443; 84484; 85025; 93005; 96361; 96374; J0153

== ENCOUNTER 2023-02-05 15:11 | Outpatient (CLI) | payer OTHER | END 2023-02-05 15:12 | disposition home or self-care (01) | LOC: DTY/OP 15:11 | PROVIDERS: ATTEND Surgery | DX: E66.01 Morbid (severe) obesity due to excess calories (principal) | CPT/HCPCS: 97802 ==

== ENCOUNTER 2023-05-02 08:29 | Outpatient (CLI) | payer MEDICARE ==
[2023-05-02 09:59] LABS: #Basophils 0.1 10x3/uL (0.0-0.2); #Eosinphils 0.1 10x3/uL (0.0-0.5); #Monocytes 0.6 10x3/uL (0.0-1.1); #Neutrophils 4.4 10x3/uL (1.5-8.4); %Monocytes 8.1 % (0.0-10.0); %Neutrophils 64.6 % (40.0-75.0); Hemoglobin 12.7 g/dL (12.0-15.5); Mean Corpuscular HGB CONC 31.8 g/dL (32.0-36.0); Mean Corpuscular Hemoglobin 26.1 pg (27.0-33.0); Mean Corpuscular Volume 82.3 fl (81.6-98.3); Mean Platelet Volume 10.4 fl (7.4-10.4); Platelet Count 343 10x3/uL (150-450); RBC Distribution Width 13.3 % (11.5-14.5); Red Blood Cell (RBC) Count 4.86 10x6/uL (3.90-5.03); White Blood Cell (WBC) Count 6.8 10x3/uL (3.5-10.5)
[2023-05-02 10:45] LABS: ALT (SGPT) 41 U/L (8-55); AST (SGOT) 23 U/L (5-34); Albumin 4.4 g/dL (3.5-5.0); Alkaline Phosphatase 76 U/L (40-110); Anion Gap 15 mmol/L (10-20); BUN (Urea Nitrogen) 19 mg/dL (9.8-20.1); Bilirubin, Total 0.3 mg/dL (0.2-1.2); Calc. Creatinine Clearance 0 mL/min (70-130); Calcium 9.8 mg/dL (7.8-10.44); Carbon Dioxide 21 mmol/L (22-29); Chloride 103 mmol/L (98-107); Estimated GFR 84; Globulin 3.1 g/dL (2.4-3.5); Glucose 158 mg/dL (70-105); Potassium 4.2 mmol/L (3.5-5.1); Protein, Total 7.5 g/dL (6.0-8.3); Sodium 135 mmol/L (136-145)
[2023-05-02 16:50] LABS: Hemoglobin A1c 7.3 % (4.0-6.0)
== END 2023-05-02 08:30 | disposition home or self-care (01) ==
LOC: LABBT 08:29
PROVIDERS: ATTEND Surgery
DX: Z01.818 Encounter for other preprocedural examination (principal); E66.01 Morbid (severe) obesity due to excess calories
CPT/HCPCS: 71046; 80053; 83036; 85025; 93005; 93010

== ENCOUNTER 2023-05-02 08:30 | Inpatient (IN) | payer MEDICARE ==
[2023-05-02 09:27] VITALS: BMI 54.3
[2023-06-04] MEDS ORDERED: Heparin 5,000 UNITS/ML VIAL ONE (06:28)
[2023-06-04] MEDS ORDERED: Fentanyl 250 MCG/5 ML VIAL ONE ×2 (06:28→10:06)
[2023-06-04] MEDS ORDERED: SUGAMMADEX SODIUM 200 MG/2 ML VIAL ONE (06:28)
[2023-06-04] MEDS ORDERED: EPINEPHrine 1 MG/ML AMP ONE (07:04)
[2023-06-04] MEDS ORDERED: Bupivacaine 0.25% HCL 30 ML VIAL ONE (07:04)
[2023-06-04] MEDS ORDERED: Rocuronium Bromide 50 MG/5 ML VIAL ONE (07:18)
[2023-06-04] MEDS ORDERED: CEFAZOLIN 2 GM VIAL ONE (07:26)
[2023-06-04] MEDS ORDERED: Sodium Chloride 0.9% 100 ML ONE (07:26)
[2023-06-04] MEDS ORDERED: Rocuronium Bromide 10 MG/ML (10ML VIAL) ONE (07:37)
[2023-06-04] MEDS ORDERED: Esmolol 100 MG/10 ML VIAL ONE (07:37)
[2023-06-04] MEDS ORDERED: Succinylcholine 200 MG/10 ml SYRINGE FS ONE (07:37)
[2023-06-04] MEDS ORDERED: Lidocaine 1% PF 5 ML VIAL ONE (07:37)
[2023-06-04] MEDS ORDERED: PROPOFOL 200 MG/20 ML VIAL ONE (07:37)
[2023-06-04] MEDS ORDERED: Glucagon 1 MG/ML KIT IM PRN (09:20)
[2023-06-04] MEDS ORDERED: hydrALAZINE 20 MG/ML VIAL SLOW IVP PRN (09:20)
[2023-06-04] MEDS ORDERED: Dextrose 50% Abboject 50 ML SYRINGE SLOW IVP PRN (09:20)
[2023-06-04] MEDS ORDERED: Ipratropium/Albuterol 3 ML NEB NEB PRN (09:20)
[2023-06-04] MEDS ORDERED: Insulin Regular 300 UNITS/3 ML VIAL SC PRN (09:20)
[2023-06-04] MEDS ORDERED: Ondansetron PF 4 MG/2 ML Vial IVP PRN ×2 (09:20→11:00)
[2023-06-04] MEDS ORDERED: diphenhydrAMINE 50 MG/ML VIAL IVP PRN ×2 (09:20→11:00)
[2023-06-04] MEDS ORDERED: Promethazine HCl 25 MG/ML VIAL IM PRN ×2 (09:20→11:00)
[2023-06-04] MEDS ORDERED: Dextrose 5% in Water 1,000 ML IV PRN (09:20)
[2023-06-04] MEDS ORDERED: Hydrocodone-Acetamin 15 ML UDCUP PO PRN (09:20)
[2023-06-04] MEDS ORDERED: Labetalol HCl 100 MG/20 ML VIAL ONE (10:00)
[2023-06-04] MEDS ORDERED: Zolpidem Tartrate 5 MG TAB PO PRN (10:54)
[2023-06-04] MEDS ORDERED: diphenhydrAMINE 25 MG CAP PO PRN (11:00)
[2023-06-04] MEDS ORDERED: diphenhydrAMINE 50 MG/ML VIAL IM PRN (11:00)
[2023-06-04] MEDS ORDERED: Fentanyl CADD 100 ML IVPB SCH (11:00)
[2023-06-04] MEDS ORDERED: Naloxone HCl 0.4 mg/ml Vial IV PRN (11:00)
[2023-06-04] MEDS: 1/2 NS w/KCL 20 mEq 1,000 ML IV SCH ×2 (13:39→18:22)
[2023-06-04] MEDS: CEFAZOLIN 2 GM in Sodium Chloride 0.9% 100 ML IVPB SCH ×2 (15:30→23:46)
[2023-06-04] MEDS: cloNIDine 0.1 MG TAB PO SCH (20:30)
[2023-06-05] MEDS: 1/2 NS w/KCL 20 mEq 1,000 ML IV SCH ×3 (00:42→17:06)
[2023-06-05 05:52] LABS: #Neutrophils 10.5 thou/uL (1.40-6.50); %Basophils 0.2 % (0.0-1.0); %Lymphocytes 9.7 % (21.0-51.0); %Monocytes 7.5 % (0.0-10.0); %Neutrophils 82.4 % (42.0-75.0); Hematocrit 36.7 % (36.0-47.0); Hemoglobin 11.8 g/dL (12.0-16.0); Mean Corpuscular HGB CONC 32.2 g/dL (32.0-36.0); Mean Corpuscular Hemoglobin 26.6 pg (27.0-31.0); Mean Corpuscular Volume 82.7 fl (78.0-98.0); Mean Platelet Volume 10.1 fL (7.4-10.4); Platelet Count 295 10x3/uL (130-400); Red Blood Cell (RBC) Count 4.44 mill/uL (4.20-5.40); White Blood Cell (WBC) Count 12.7 10x3/uL (4.8-10.8)
[2023-06-05 06:16] LABS: Anion Gap 12 mmol/L (10-20); BUN (Urea Nitrogen) 7 mg/dL (9.8-20.1); Calc. Creatinine Clearance 191 mL/min (70-130); Calcium 8.9 mg/dL (7.8-10.44); Carbon Dioxide 23 mmol/L (22-29); Chloride 103 mmol/L (98-107); Estimated GFR 91; Glucose 128 mg/dL (70-105); Potassium 3.5 mmol/L (3.5-5.1); Sodium 134 mmol/L (136-145)
[2023-06-05] MEDS: Pantoprazole 40 MG VIAL IVP SCH (08:37)
[2023-06-05] MEDS: Hydrocodone-Acetamin 15 ML UDCUP PO PRN ×2 (08:49→19:05)
[2023-06-05] MEDS: cloNIDine 0.1 MG TAB PO SCH (21:20)
[2023-06-06] MEDS: Ketorolac Tromethamine 30 MG/ML VIAL IVP PRN ×2 (04:10→08:46)
[2023-06-06] MEDS: 1/2 NS w/KCL 20 mEq 1,000 ML IV SCH ×2 (04:13→11:42)
[2023-06-06] MEDS: Pantoprazole 40 MG VIAL IVP SCH (08:47)
[2023-06-06 11:46] VITALS: BP 119/85; TEMP 98.2
[2023-06-06] MEDS: Hydrocodone-Acetamin 15 ML UDCUP PO PRN (12:14)
== END 2023-06-06 13:15 | disposition home or self-care (01) | DRG 621 ==
LOC: SURG A 06-04 06:01
PROVIDERS: ADMIT Surgery; ATTEND Surgery
PROC: 0DB64Z3 Excision of Stomach, Percutaneous Endoscopic Approach, Vertical (ICD-10-PCS; principal; 2023-06-04)
PROC: 8E0W4CZ Robotic Assisted Procedure of Trunk Region, Percutaneous Endoscopic Approach (ICD-10-PCS; 2023-06-04)
DX: E66.01 Morbid (severe) obesity due to excess calories (principal); I10 Essential (primary) hypertension; E11.9 Type 2 diabetes mellitus without complications; E78.5 Hyperlipidemia, unspecified; Z98.890 Other specified postprocedural states; R00.1 Bradycardia, unspecified; Z90.49 Acquired absence of other specified parts of digestive tract; Z88.5 Allergy status to narcotic agent; Z88.8 Allergy status to other drugs, medicaments and biological substances; Z68.43 Body mass index [BMI] 50.0-59.9, adult
CPT/HCPCS: 36415; 80048; 85025; 88307; C1889; C9113; J0171; J0360; J1644; J1650; J1885; J2704; J3010; J3480; J3490; S0020

== ENCOUNTER 2023-05-30 12:57 | Outpatient (CLI) | payer MEDICARE ==
[2023-05-30 14:02] LABS: #Basophils 0.1 10x3/uL (0.0-0.2); #Eosinphils 0.1 10x3/uL (0.0-0.5); #Monocytes 0.8 10x3/uL (0.0-1.1); #Neutrophils 5.2 10x3/uL (1.5-8.4); %Basophils 0.8 % (0.0-2.0); %Eosinophils 0.8 % (0.0-6.0); %Monocytes 9.1 % (0.0-10.0); %Neutrophils 60.8 % (40.0-75.0); Hematocrit 42.5 % (34.9-44.5); Hemoglobin 13.7 g/dL (12.0-15.5); Mean Corpuscular HGB CONC 32.2 g/dL (32.0-36.0); Mean Corpuscular Hemoglobin 26.4 pg (27.0-33.0); Mean Platelet Volume 10.3 fl (7.4-10.4); Platelet Count 364 10x3/uL (150-450); RBC Distribution Width 13.8 % (11.5-14.5); Red Blood Cell (RBC) Count 5.18 10x6/uL (3.90-5.03); White Blood Cell (WBC) Count 8.5 10x3/uL (3.5-10.5)
[2023-05-30 14:17] LABS: ALT (SGPT) 28 U/L (8-55); AST (SGOT) 22 U/L (5-34); Albumin 4.7 g/dL (3.5-5.0); Alkaline Phosphatase 85 U/L (40-110); Anion Gap 18 mmol/L (10-20); BUN (Urea Nitrogen) 18 mg/dL (9.8-20.1); Bilirubin, Total 0.3 mg/dL (0.2-1.2); Calc. Creatinine Clearance 0 mL/min (70-130); Calcium 10.2 mg/dL (7.8-10.44); Carbon Dioxide 22 mmol/L (22-29); Chloride 102 mmol/L (98-107); Estimated GFR 73; Globulin 3.3 g/dL (2.4-3.5); Glucose 151 mg/dL (70-105); Potassium 4.2 mmol/L (3.5-5.1); Sodium 138 mmol/L (136-145)
[2023-05-30 22:06] LABS: Hemoglobin A1c 7.2 % (4.0-6.0)
== END 2023-05-30 12:58 | disposition home or self-care (01) ==
LOC: LABBT 12:57
PROVIDERS: ATTEND Surgery
DX: Z01.818 Encounter for other preprocedural examination (principal); E66.01 Morbid (severe) obesity due to excess calories
CPT/HCPCS: 71046; 80053; 83036; 85025

== ENCOUNTER 2025-09-13 08:32 | Outpatient (CLI) | payer OTHER ==
[2025-09-13 10:18] LABS: #Basophils 0.05 10x3/uL (0.0-0.2); #Eosinophils 0.10 10x3/uL (0.0-0.7); #Monocytes 0.52 10x3/uL (0.11-0.59); #Neutrophils 2.75 10x3/uL (1.40-6.50); %Basophils 1.0 % (0.0-1.0); %Eosinophils 2.0 % (0.0-10.0); %Lymphocytes 32.1 % (21.0-51.0); %Monocytes 10.3 % (0.0-10.0); %Neutrophils 54.4 % (42.0-75.0); Hematocrit 39.5 % (36.0-47.0); Hemoglobin 11.9 g/dL (12.0-16.0); Mean Corpuscular Hemoglobin 25.2 pg (27.0-31.0); Mean Corpuscular Volume 83.7 fL (78.0-98.0); Platelet Count 310 10x3/uL (130-400); Red Blood Cell (RBC) Count 4.72 mill/uL (4.20-5.40); White Blood Cell (WBC) Count 5.05 10x3/uL (4.8-10.8)
[2025-09-13 10:33] LABS: INR-International Normal Ratio 1.0; Prothrombin Time 13.8 sec (12.0-14.7)
[2025-09-13 10:34] LABS: PTT 35.8 sec (22.9-36.1)
[2025-09-13 10:40] LABS: Anion Gap 13 mmol/L (10-20); BUN (Urea Nitrogen) 13 mg/dL (9.8-20.1); Calc. Creatinine Clearance 0 mL/min (70-130); Calcium 9.4 mg/dL (7.8-10.44); Carbon Dioxide 30 mmol/L (22-29); Chloride 105 mmol/L (98-107); Glucose 108 mg/dL (70-105); Potassium 3.7 mmol/L (3.5-5.1); Sodium 144 mmol/L (136-145)
== END 2025-09-13 08:33 | disposition home or self-care (01) ==
LOC: LABBT 08:32
PROVIDERS: ATTEND Internal Medicine Cardiovascular Disease
DX: Z01.812 Encounter for preprocedural laboratory examination (principal); I47.10 Supraventricular tachycardia, unspecified
CPT/HCPCS: 80048; 85025; 85610; 85730

== ENCOUNTER 2025-09-20 11:17 | Day surgery (SDC) | payer OTHER ==
[2025-09-13 08:53] VITALS: BMI 42.5
[2025-09-20] MEDS ORDERED: Heparin 10,000 UNITS/ 10 ML VIAL ONE (13:35)
[2025-09-20] MEDS ORDERED: Lidocaine 1% PF 5 ML VIAL ONE (13:39)
[2025-09-20] MEDS ORDERED: Isoproterenol 0.2 MG/1 ML AMP ONE (14:12)
[2025-09-20] MEDS ORDERED: Famotidine/PF 20 mg/2ml Vial ONE (14:15)
[2025-09-20] MEDS ORDERED: PHENYLEPHRINE-NS 100 MCG/ML 10 ML SYRINGE ONE (14:42)
[2025-09-20] MEDS ORDERED: PROPOFOL 200 MG/20 ML VIAL ONE (14:42)
[2025-09-20] MEDS ORDERED: Ondansetron PF 4 MG/2 ML Vial ONE (14:42)
[2025-09-20] MEDS ORDERED: Rocuronium Bromide 10 MG/ML (10ML VIAL) ONE (14:42)
[2025-09-20] MEDS ORDERED: SUCCINYLCHOLINE/SOD CL,ISO/PF 200 MG/10 ML SYRINGE FS ONE (15:02)
[2025-09-20] MEDS ORDERED: Lidocaine 1% (PF) 30 ML VIAL ONE (15:13)
[2025-09-20] MEDS ORDERED: SUGAMMADEX SODIUM 200 MG/2 ML VIAL ONE (16:07)
== END 2025-09-20 19:20 | disposition home or self-care (01) ==
LOC: SDC 11:17
PROVIDERS: ATTEND Internal Medicine Cardiovascular Disease
PROC: 4A023FZ Measurement of Cardiac Rhythm, Percutaneous Approach (ICD-10-PCS; principal; 2025-09-20)
PROC: 02583ZZ Destruction of Conduction Mechanism, Percutaneous Approach (ICD-10-PCS; 2025-09-20)
DX: I47.10 Supraventricular tachycardia, unspecified (principal); I10 Essential (primary) hypertension; E11.9 Type 2 diabetes mellitus without complications; E78.5 Hyperlipidemia, unspecified; E66.9 Obesity, unspecified; Z68.39 Body mass index [BMI] 39.0-39.9, adult; Z98.84 Bariatric surgery status; Z96.641 Presence of right artificial hip joint; Z90.710 Acquired absence of both cervix and uterus; Z90.49 Acquired absence of other specified parts of digestive tract; Z90.89 Acquired absence of other organs; Z88.5 Allergy status to narcotic agent; Z88.8 Allergy status to other drugs, medicaments and biological substances; Z88.6 Allergy status to analgesic agent; Z79.84 Long term (current) use of oral hypoglycemic drugs; Z79.85 Long-term (current) use of injectable non-insulin antidiabetic drugs; Z79.899 Other long term (current) drug therapy
CPT/HCPCS: 93623; 93653; C1730; C1760; C2630; J1308; J2003; J2250; J3010; 93005; C1894; J1100; J1644; J2405; J2704